=== PATIENT | female | born 1950 | race Caucasian/White ===

== ENCOUNTER 2019-07-26 10:19 | Emergency (ER) | payer MEDICARE, OTHER ==
[2019-07-26] MEDS ORDERED: Acetaminophen/oxyCODONE 325-5 MG Tab PO ONE (10:48)
--- NOTE | 2019-07-26 10:51 | EDM.PDOC ---
ED HPI GENERAL MEDICAL PROBLEM - General Chief Complaint: Upper Extremity Injury/Pain Stated Complaint: POSSIBLE BROKEN LEFT WRIST Time Seen by Provider: 07/26/19 10:45 Source of Information: Reports: Patient History Limitations: Reports: No Limitations - History of Present Illness INITIAL COMMENTS - FREE TEXT/NARRATIVE: 69 yo female tripped and fell injuring her L wrist. Is here for evaluation of this injury. Onset: Today Onset Date: 07/26/19 Onset Time: 10:00 Duration: Minutes:, Constant Location: Reports: Upper Extremity, Left Quality: Reports: Ache Severity: Moderate Improves with: Reports: Rest Worsens with: Reports: Movement Context: Reports: Trauma Associated Symptoms: Reports: No Other Symptoms Treatments [employer]: Reports: Other (see below) (none) Left Wrist Pain Score (Numeric/FACES): 10 - Related Data Allergies Allergy/AdvReac Type Severity Reaction Status Date / Time No Known Allergies Allergy Verified 07/26/19 10:53 Home Meds: Home Meds Diltiazem [Cardizem] 90 mg PO DAILY 07/26/19 [History] Simvastatin 10 mg PO DAILY 07/26/19 [History] raNITIdine HCl [Zantac] 150 mg PO BID 07/26/19 [History] Review of Systems - Review of Systems Review Of Systems: See Below Constitutional: Reports: No Symptoms Musculoskeletal: Reports: Joint Pain (L wrist) Skin: Reports: No Symptoms Neurological: Reports: No Symptoms ED EXAM, GENERAL - Physical Exam Exam: See Below Exam Limited By: No Limitations General Appearance: Alert, WD/WN, No Apparent Distress Extremities: Joint Swelling (L wrist slightly swollen). No: Normal Inspection, Normal Range of Motion, Non-Tender, Limited Range of Motion (decreased ROM due to pain), Increased Warmth, Redness Neurological: Alert, Oriented, CN II-XII Intact, Normal Cognition, No Motor/ Sensory Deficits Psychiatric: Normal Affect, Normal Mood Skin Exam: Warm, Dry, Intact, Normal Color, No Rash Course - Vital Signs Text/Narrative:: Sugar tong splint applied. Sling given. Dr. Sanchez not available. Last Recorded V/S: Last Vital Signs Temp 36.9 C 07/26/19 11:01 Pulse 85 07/26/19 11:01 Resp 14 07/26/19 11:01 BP 124/84 07/26/19 11:01 Pulse Ox 93 L 07/26/19 11:01 - Orders/Labs/Meds Orders: Active Orders 24 hr Category Date Time Status Wrist Comp Min 3V Lt [CR] Stat Exams 07/26/19 10:23 Taken Meds: Medications Discontinued Medications Generic Name Dose Route Start Last Admin Trade Name Aminata PRN Reason Stop Dose Admin Oxycodone/Acetaminophen 1 tab 07/26/19 10:48 07/26/19 10:54 Percocet 325-5 Mg PO 07/26/19 10:49 1 tab ONETIME ONE Administration - Radiology Interpretation Free Text/Narrative:: L wrist [id number] distal radial fx Departure - Departure Time of Disposition: 11:25 Disposition: Home, Self-Care 01 Condition: Fair Clinical Impression: Distal radius fracture, left Qualifiers: Encounter type: initial encounter Fracture type: closed Fracture morphology: Colles' Qualified Code(s): S52.532A - Colles' fracture of left radius, initial encounter for closed fracture - Discharge Information *PRESCRIPTION DRUG MONITORING PROGRAM REVIEWED*: No *COPY OF PRESCRIPTION DRUG MONITORING REPORT IN PATIENT JONO: No Instructions: Wrist Fracture Treated With Immobilization, [id number] Referrals: PCP,None [Primary Care Provider] - Forms: ED Department Discharge Additional Instructions: Wear your splint at all times. Keep your wrist elevated to reduce swelling and pain. Make arrangements to see an orthopedic doctor back home for early next week if possible, take your X-rays along to your appt. Take ibuprofen 400 mg every 6 hrs with food for pain relief. Add either acetaminophen OR Fithian for added relief. - My Orders Last 24 Hours: My Active Orders 07/26/19 10:23 Wrist Comp Min 3V Lt [CR] Stat - Assessment/Plan Last 24 Hours: My Active Orders 07/26/19 10:23 Wrist Comp Min 3V Lt [CR] Stat
--- NOTE | 2019-07-26 11:29 | CRLCR ---
INDICATION: Left wrist injury. TECHNIQUE: Three views of the left wrist. COMPARISON: None. FINDINGS: Acute, mildly comminuted fracture of the distal radial metaphysis with involvement of the articular cortex. Distal fragments impacted and mildly dorsally angulated with respect to the shaft fragment. 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 IMPRESSION: Acute, comet, impacted and mildly angulated distal radial metaphysis fracture. Dictated by Chauncey Orta MD @ Jul 26 2019 11:26AM Signed by Dr. Chauncey Orta @ Jul 26 2019 11:29AM
== END 2019-07-26 11:29 | disposition home or self-care (01) ==
LOC: JP.ED 10:19
DX: S52.532A Colles' fracture of left radius, initial encounter for closed fracture (principal); Z79.899 Other long term (current) drug therapy; W01.0XXA Fall on same level from slipping, tripping and stumbling without subsequent striking against object, initial encounter
CPT/HCPCS: 29125; 73110; 99283; A9270

== ENCOUNTER 2024-08-07 10:15 | Emergency (ER) | payer MEDICARE, OTHER ==
[2024-08-07 11:44] LABS: BASOPHILS ABSOLUTE AUTO 0.03 K/uL (0.00-0.10); BASOPHILS PERCENT AUTO 0.4 % (0.1-1.3); EOSINOPHILS ABSOLUTE AUTO 0.14 K/uL (0.00-0.40); EOSINOPHILS PERCENT AUTO 1.8 % (0.0-5.4); HEMATOCRIT 39.6 % (34.3-46.0); HEMOGLOBIN 13.8 g/dL (11.2-15.5); IMMATURE GRAN ABSOLUTE AUTO 0.03 K/uL (0.00-0.23); IMMATURE GRAN PERCENT AUTO 0.4 % (0.0-0.7); LYMPHOCYTES ABSOLUTE AUTO 1.33 K/uL (0.8-3.3); LYMPHOCYTES PERCENT AUTO 17.3 % (11.4-47.7); MEAN CORPUSCULAR HEMOGLOBIN 32.9 pg (31.6-35.5); MEAN CORPUSCULAR HGB CONC 34.8 g/dL (31.6-35.5); MEAN CORPUSCULAR VOLUME 94.5 fL (81.4-99.0); MONOCYTES ABSOLUTE AUTO 0.64 K/uL (0.20-0.90); MONOCYTES PERCENT AUTO 8.3 % (3.3-12.6); NEUTROPHILS ABSOLUTE AUTO 5.52 K/uL (1.0-7.6); NEUTROPHILS PERCENT AUTO 71.8 % (40.0-78.1); PLATELET COUNT,PLT 246 K/uL (130-375); RED BLOOD CELL COUNT 4.19 M/uL (3.77-5.24); WHITE BLOOD CELL COUNT,WBC 7.7 K/uL (3.2-11.0)
[2024-08-07 12:00] LABS: ANION GAP 6.9 mmol/L (5.0-14.0); CALCIUM 9.9 mg/dL (8.5-10.1); CREATININE 1.1 mg/dL (0.6-1.0); EST CRCL DRUG DOSING (CG) 37.57 mL/min; POTASSIUM,K 4.7 mmol/L (3.6-5.2)
== END 2024-08-07 13:22 | disposition home or self-care (01) ==
LOC: JP.ED 10:15
DX: J18.9 Pneumonia, unspecified organism (principal); Z79.899 Other long term (current) drug therapy
CPT/HCPCS: 36415; 71046; 71046-26; 80048; 83605; 84145; 85025; 99283